=== PATIENT | female | born 1980 | race American Indian/Alaskan Native ===

== ENCOUNTER 2016-08-01 08:02 | Emergency (ER) | payer SELFPAY ==
[2016-08-01 08:13] VITALS: BP 125/92
--- NOTE | 2016-08-01 09:53 | Emergency Department Report ---
- General Chief Complaint: Earache Stated Complaint: COUGH/EAR PAIN Time Seen by Provider: 08/01/16 09:18 Source: patient Mode of arrival: Ambulatory Limitations: No Limitations - History of Present Illness Initial Comments: 35-year-old female past medical history smoker presents with complaint of 3-4 days of productive cough and subjective fever chills. Patient states cough is yellowish greenish sputum. Also states that she has minor discomfort in right ear. Multiple sick contacts at home. MD Complaint: cough, rhinorrhea Onset/Timin -: days(s) Severity: moderate Context: sick contacts Associated Symptoms: rhinorrhea, cough - Related Data Previous Rx's Medication Instructions Recorded Last Taken Type ALBUTEROL Inhaler [ProAir HFA 1 puff IH Q4H PRN #1 inha 08/01/16 Unknown Rx Inhaler] Azithromycin [Zithromax Z-MERCY] 250 mg PO DAILY #6 tablet 08/01/16 Unknown Rx Naproxen [Naprosyn TAB] 500 mg PO BID #14 tablet 08/01/16 Unknown Rx Phenylephrine/Dm/Acetaminop/GG 10 ml PO Q6H PRN #1 liquid 08/01/16 Unknown Rx [Mucinex Nnql-Jlx-Ygookcnype Lq] Allergies Allergy/AdvReac Type Severity Reaction Status Date / Time No Known Allergies Allergy Unverified 08/01/16 08:13 ED Review of Systems ROS: Stated complaint: COUGH/EAR PAIN Other details as noted in HPI ENT: ear pain Respiratory: cough ED Past Medical Hx - Past Medical History Previous Medical History?: Yes Additional medical history: childbirth by - Surgical History Past Surgical History?: Yes Additional Surgical History: x 3 - Social History Smoking Status: Current Some Day Smoker Substance Use Type: Alcohol - Medications Home Medications: Home Medications Medication Instructions Recorded Confirmed Last Taken Type ALBUTEROL Inhaler [ProAir HFA 1 puff IH Q4H PRN #1 inha 08/01/16 Unknown Rx Inhaler] Azithromycin [Zithromax Z-MERCY] 250 mg PO DAILY #6 tablet 08/01/16 Unknown Rx Naproxen [Naprosyn TAB] 500 mg PO BID #14 tablet 08/01/16 Unknown Rx Phenylephrine/Dm/Acetaminop/GG 10 ml PO Q6H PRN #1 liquid 08/01/16 Unknown Rx [Mucinex Puch-Dnl-Dinvlvarqa Lq] ED Physical Exam - General Limitations: No Limitations General appearance: alert, in no apparent distress - Head Head exam: Present: atraumatic, normocephalic - Eye Eye exam: Present: normal appearance, PERRL, EOMI - ENT ENT exam: Present: normal exam, mucous membranes moist - Expanded ENT Exam Expanded Ear exam: Present: normal external inspection, other (no signs of ear infection on exams bilaterally) - Neck Neck exam: Present: normal inspection - Respiratory Respiratory exam: Present: normal lung sounds bilaterally. Absent: respiratory distress - Cardiovascular Cardiovascular Exam: Present: regular rate, normal rhythm. Absent: systolic murmur, diastolic murmur, rubs, gallop - GI/Abdominal GI/Abdominal exam: Present: soft, normal bowel sounds - Extremities Exam Extremities exam: Present: normal inspection - Back Exam Back exam: Present: normal inspection - Neurological Exam Neurological exam: Present: alert, oriented X3 - Psychiatric Psychiatric exam: Present: normal affect, normal mood - Skin Skin exam: Present: warm, dry, intact, normal color. Absent: rash ED Course Vital Signs 08/01/16 08:09 Temperature 98.2 F Pulse Rate 76 Respiratory 20 Rate Blood Pressure 125/92 O2 Sat by Pulse 99 Oximetry ED Medical Decision Making - Medical Decision Making A/P: URI/possible bronchitis 1-Mucinex, naproxen, albuterol inhaler, Z-Mercy 2-follow up with primary care doctor 3-I advised patient to return to the ED if she has any worsened persistent fever chills chest pain and inability to tolerate by mouth Critical care attestation.: If time is entered above; I have spent that time in minutes in the direct care of this critically ill patient, excluding procedure time. ED Disposition Clinical Impression: Upper respiratory infection Qualifiers: URI type: unspecified viral URI Qualified Code(s): J06.9 - Acute upper respiratory infection, unspecified; B97.89 - Other viral agents as the cause of diseases classified elsewhere Disposition: DISCHARGED TO HOME OR SELFCARE Is pt being admited?: No Does the pt Need Aspirin: No Condition: Stable Instructions: Upper Respiratory Infection (ED) Prescriptions: ALBUTEROL Inhaler [ProAir HFA Inhaler] 1 puff IH Q4H PRN #1 inha PRN Reason: Cough Azithromycin [Zithromax Z-MERCY] 250 mg PO DAILY #6 tablet Naproxen [Naprosyn TAB] 500 mg PO BID #14 tablet Phenylephrine/Dm/Acetaminop/GG [Mucinex Kajg-Slp-Iityougpct Lq] 10 ml PO Q6H PRN #1 liquid PRN Reason: Cough Referrals: PRIMARY CARE, [Primary Care Provider] - 3-5 Days Forms: Work/School Release Form(ED) Time of Disposition: 09:55
== END 2016-08-01 10:00 | disposition home or self-care (01) ==
LOC: ED 08:02
DX: J06.9 Acute upper respiratory infection, unspecified (principal); B97.89 Other viral agents as the cause of diseases classified elsewhere; Z72.0 Tobacco use
CPT/HCPCS: 99282

== ENCOUNTER 2017-10-02 09:58 | Emergency (ER) | payer OTHER ==
[2017-10-02 10:17] VITALS: BP 122/79
[2017-10-02 10:43] LABS: HCG Qualitative,Urine Negative (Negative)
[2017-10-02 10:44] LABS: Bacteria,Urine 1+ /HPF (Negative); Bilirubin,Urine NEG (Negative); Blood,Urine NEG (Negative); Color,Urine Yellow (Yellow); Hyaline Casts,Urine 1 /LPF; Protein,Urine <15 mg/dL mg/dL (Negative); Urobilinogen,Urine < 2.0 mg/dL (<2.0)
--- NOTE | 2017-10-02 11:22 | Emergency Department Report ---
ED Female HPI - General Chief complaint: Urogenital-Female Stated complaint: ABD PAIN Time Seen by Provider: 10/02/17 10:38 Source: patient Mode of arrival: Ambulatory Limitations: No Limitations - History of Present Illness Initial comments: This is a 36 y.o. female that presents with suprapubic and low back pain for 2 days. Admits to frequency, discharge, suprapubic and low back pain for 2 days. Admits to possibly having a STD but she is also concerned about possibly having a UTI. States discharge is white and moderate. Denies dysuria, nausea, vomiting , and fever. MD Complaint: vaginal discharge, pelvic pain, possible STD -: days(s) (2) Location: suprapubic Radiation: L flank, R flank Severity: moderate Severity scale (0 -10): 6 Quality: aching Consistency: intermittent Improves with: none Worsens with: none Are you Now?: No Associated Symptoms: vaginal discharge, abdominal pain (suprapubic). denies: vaginal bleeding, nausea/vomiting, fever/chills, headaches, loss of appetite, dysuria, hematuria, rash, seizure, shortness of breath, syncope, weakness - Related Data Sexually active: Yes Previous Rx's Medication Instructions Recorded Last Taken Type ALBUTEROL Inhaler [ProAir HFA 1 puff IH Q4H PRN #1 inha 08/01/16 Unknown Rx Inhaler] Azithromycin [Zithromax Z-MERCY] 250 mg PO DAILY #6 tablet 08/01/16 Unknown Rx Naproxen [Naprosyn TAB] 500 mg PO BID #14 tablet 08/01/16 Unknown Rx Phenylephrine/Dm/Acetaminop/GG 10 ml PO Q6H PRN #1 liquid 08/01/16 Unknown Rx [Mucinex Htdl-Owe-Bllndllhav Lq] metroNIDAZOLE [Metronidazole] 500 mg PO BID 7 Days #14 tablet 10/02/17 Unknown Rx Allergies Allergy/AdvReac Type Severity Reaction Status Date / Time No Known Allergies Allergy Unverified 08/01/16 08:13 ED Review of Systems ROS: Stated complaint: ABD PAIN Other details as noted in HPI Constitutional: denies: chills, fever Respiratory: denies: cough, shortness of breath, wheezing Cardiovascular: denies: chest pain, palpitations Gastrointestinal: abdominal pain (suprapubic pain). denies: nausea, vomiting, diarrhea, constipation Genitourinary: urgency, frequency. denies: dysuria, hematuria, discharge, abnormal menses Musculoskeletal: myalgia (bilateral flank pain). denies: back pain, joint swelling, arthralgia Psychiatric: denies: anxiety, depression ED Past Medical Hx - Past Medical History Previous Medical History?: Yes Additional medical history: childbirth by - Surgical History Past Surgical History?: Yes Additional Surgical History: x 3 - Social History Smoking Status: Current Every Day Smoker Substance Use Type: Alcohol - Medications Home Medications: Home Medications Medication Instructions Recorded Confirmed Last Taken Type ALBUTEROL Inhaler [ProAir HFA 1 puff IH Q4H PRN #1 inha 08/01/16 Unknown Rx Inhaler] Azithromycin [Zithromax Z-MERCY] 250 mg PO DAILY #6 tablet 08/01/16 Unknown Rx Naproxen [Naprosyn TAB] 500 mg PO BID #14 tablet 08/01/16 Unknown Rx Phenylephrine/Dm/Acetaminop/GG 10 ml PO Q6H PRN #1 liquid 08/01/16 Unknown Rx [Mucinex Ghzu-Dqr-Xuvmkqkhxq Lq] metroNIDAZOLE [Metronidazole] 500 mg PO BID 7 Days #14 tablet 10/02/17 Unknown Rx ED Physical Exam - General Limitations: No Limitations General appearance: alert, in no apparent distress - Respiratory Respiratory exam: Present: normal lung sounds bilaterally. Absent: respiratory distress, wheezes, rales, rhonchi, stridor, accessory muscle use - Cardiovascular Cardiovascular Exam: Present: regular rate, normal rhythm, normal heart sounds. Absent: systolic murmur, diastolic murmur, rubs, gallop - GI/Abdominal GI/Abdominal exam: Present: soft, normal bowel sounds. Absent: distended, tenderness, guarding, rebound, rigid, organomegaly, mass - Back Exam Back exam: Present: CVA tenderness (R), CVA tenderness (L). Absent: rash noted - Neurological Exam Neurological exam: Present: alert, oriented X3, normal gait - Psychiatric Psychiatric exam: Present: normal affect, normal mood - Skin Skin exam: Present: warm, dry, intact, normal color. Absent: rash ED Course Vital Signs 10/02/17 10:14 Temperature 98.7 F Pulse Rate 86 Respiratory 18 Rate Blood Pressure 122/79 O2 Sat by Pulse 98 Oximetry ED Medical Decision Making - Medical Decision Making This is a 36 y.o. female presents with vaginal discharge and suprapubic pain for 3 days. Patient was examined by me. Vitals stable. Obtained UA & HCG. Review labs. Discussed treating empirically with rocephin, azithromycin, and flagyl with patient. Patient agreed with plan to treat and f/u with [facility] for full STD screening. Given rocephin 250 mg IM and azithromycin 1 g po in ER. Discharged home in stable condition. Start metronidazole 500 mg po bid x 7 days. Discussed prevention options. F/U with PCP or Health Department. Critical care attestation.: If time is entered above; I have spent that time in minutes in the direct care of this critically ill patient, excluding procedure time. ED Disposition Clinical Impression: Exposure to STD Disposition: DC- TO HOME OR SELFCARE Is pt being admited?: No Does the pt Need Aspirin: No Condition: Stable Instructions: Sexually Transmitted Diseases (ED), Safe Sex (ED) Additional Instructions: Complete full course of flagyl antibiotics and avoid drinking alcohol while taking medication and for 24 hours after completion. Continue safe sexual intercourse. Follow up with Primary Care Provider or health department in 2-3 days. Prescriptions: metroNIDAZOLE [Metronidazole] 500 mg PO BID 7 Days #14 tablet Referrals: [facility] [Outside] - 3-5 Days [facility] [Outside] - 3-5 Days [facility] [Outside] - 3-5 Days Forms: Work/School Release Form(ED) Time of Disposition: 12:08 Print Language: CZECH
[2017-10-02] MEDS ORDERED: ZITHROMAX PO ONE (12:09)
[2017-10-02] MEDS ORDERED: XYLOCAINE 1% MPF 5 mL INFILTRATI ONE (12:09)
[2017-10-02] MEDS ORDERED: ROCEPHIN IM ONE (12:09)
== END 2017-10-02 12:15 | disposition home or self-care (01) ==
LOC: ED 09:58
DX: R10.30 Lower abdominal pain, unspecified (principal); M54.5 Low back pain; F17.200 Nicotine dependence, unspecified, uncomplicated
CPT/HCPCS: 81001; 81025; 99283